=== PATIENT | female | born 1975 | race Hispanic/Latino ===

== ENCOUNTER 2016-11-28 07:01 | Outpatient (CLI) | payer OTHER ==
--- NOTE | 2016-11-28 09:31 | MRI ---
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 FINDINGS: Postcontrast-enhanced multiplanar images of brain and pituitary and pineal glands are obtained. Images demonstrate 2 areas of slight increased signal seen on T2 weighted sequences within the pinea l region. These areas do not enhance on the contrast-enhanced images. 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 No definite abnormal areas of enhancement are seen on the rest of the pineal g land. Repeat followup MRI in approximately 6 months to a year may be of use to confirm pineal stabi lity. No other abnormal areas of intracranial enhancement or masses seen. POS: [facility]
[2016-11-28] MEDS ORDERED: Gadobenate Dimeglumine 529 MG/1 ML (20ML VIAL) ONE (14:38)
== END 2016-11-28 07:02 | disposition home or self-care (01) ==
LOC: MRI 07:01
PROVIDERS: ATTEND Student in an Organized Health Care Education/Training Program
DX: R93.0 Abnormal findings on diagnostic imaging of skull and head, not elsewhere classified (principal); R51 Headache
CPT/HCPCS: 70552; A9579

== ENCOUNTER 2017-01-03 11:22 | Outpatient (CLI) | payer OTHER ==
--- NOTE | 2017-01-03 13:14 | MMO ---
BILATERAL SCREENING MAMMOGRAM: COMPARISON: 06/09/15 study. HISTORY: Annual screening exam. Films are reviewed with the assistance of computer-aided detection. FINDINGS: The breasts are heterogeneously dense. Benign calcifications are seen. Stable nodular density in th e upper outer left breast appears to represent an intramammary node. IMPRESSION: BI-RADS category 2 - benign findings. BIRADS 2: Benign Finding(s) Routine annual screening mammography (for women over age 40) POS: [facility]
== END 2017-01-03 11:23 | disposition home or self-care (01) ==
LOC: MAMMO 11:22
PROVIDERS: ATTEND Internal Medicine
DX: Z12.31 Encounter for screening mammogram for malignant neoplasm of breast (principal)
CPT/HCPCS: 77067; G0202

== ENCOUNTER 2017-05-09 10:43 | Outpatient (CLI) | payer OTHER | END 2017-05-09 10:44 | disposition home or self-care (01) | LOC: BICRAD 10:43 | PROVIDERS: ATTEND Internal Medicine | DX: M79.671 Pain in right foot (principal); M19.071 Primary osteoarthritis, right ankle and foot ==

== ENCOUNTER 2017-05-19 07:45 | Outpatient (CLI) | payer OTHER ==
--- NOTE | 2017-05-19 09:14 | CT ---
CT RIGHT FOOT: Date: 05/19/17 Multiple axial tomograms obtained through the right ankle and foot with multiplanar reconstructions. INDICATION: Right foot pain. Technologist states that there is pain to base of second and third toes. FINDINGS: Mild degenerative spurring is seen at the tibiotalar joint. The intertarsal joints appear unremarkabl e. Tarsals appear intact. The tarsometatarsal joints are unremarkable. There is slight deformity of the mid shaft of the second metatarsal suggesting old, healed fracture. Very mild degenerative spurring at the first MTP joint. The other MTP joints appear unremarkable. Pha langes appear unremarkable. No soft tissue abnormality identified. IMPRESSION: No evidence of acute osseous abnormality. There are mild degenerative changes as described. POS: [facility]
== END 2017-05-19 07:46 | disposition home or self-care (01) ==
LOC: CT 07:45
PROVIDERS: ATTEND Internal Medicine
DX: M79.671 Pain in right foot (principal); M19.071 Primary osteoarthritis, right ankle and foot

== ENCOUNTER 2017-07-10 23:56 | Emergency (ER) | payer OTHER ==
[2017-07-11] MEDS ORDERED: Adacel (T-DAP) 0.5 ML VIAL ONE (00:09)
[2017-07-11] MEDS ORDERED: Lidocaine 1% 20 ML MDV ONE (00:11)
[2017-07-11] MEDS ORDERED: HYDROcodone/Acetaminophen 5/325 mg Tablet ONE (00:26)
[2017-07-11] MEDS ORDERED: Bacitracin Zinc Ointment 30 gm TUBE ONE (00:57)
[2017-07-11] MEDS ORDERED: CEFAZOLIN 1 GM VIAL ONE (01:05)
[2017-07-11] MEDS ORDERED: Sodium Chloride 0.9% 100 ML ONE (01:06)
--- NOTE | 2017-07-11 07:38 | RAD ---
RIGHT FINGER 2 VIEWS: HISTORY: Foreign body to the hand. COMPARISON: None. FINDINGS: There appears to be a broken-off needle within the bilateral soft tissues of the thumb distal phalanx . This appears to abut the cortex and not definitively the interosseous. IMPRESSION: Radiopaque foreign object within the lateral soft tissues distal phalanx thumb tuft. POS: [facility]
--- NOTE | 2017-07-11 07:40 | RAD ---
RIGHT FINGER 3 VIEWS: HISTORY: Foreign body removal. COMPARISON: Radiograph same day. FINDINGS: Interval removal of the right finger foreign body of the lateral soft tissues distal phalanx of the t humb. IMPRESSION: No residual radiopaque foreign object appreciated. POS: [facility]
== END 2017-07-11 02:03 | disposition home or self-care (01) ==
LOC: SCSER 23:56
DX: S61.041A Puncture wound with foreign body of right thumb without damage to nail, initial encounter (principal); Z23 Encounter for immunization; Z79.899 Other long term (current) drug therapy; I10 Essential (primary) hypertension; W45.8XXA Other foreign body or object entering through skin, initial encounter
CPT/HCPCS: 10120; 90471; 90715; 96365; J0690; J2001; J7050

== ENCOUNTER 2017-11-18 07:25 | Outpatient (CLI) | payer OTHER ==
--- NOTE | 2017-11-18 10:30 | CT ---
POSTCONTRAST NECK CT: HISTORY: Knot in the left upper neck. Lymphadenopathy. COMPARISON: None. FINDINGS: The visualized brain parenchyma is unremarkable. Adequate aeration of the visualized mastoid air cells and paranasal sinuses. Aerodigestive tract is patent. No obvious masses in the oral cavity. Dental amalgam artifact limits evaluation. Midline fatty raphae of the tongue is preserved. Epiglottis has a normal caliber. Pre epiglottic fat is preserved. There is no prevertebral soft tissue swelling. Symmetric attenuation of the parotid and submandibular glands. The thyroid gland is unremarkable. The great vessels of the neck are grossly patent. Cervical spine vertebral body height is maintained. No fracture. Straightening of the normal cervic al lordosis is presumed to be due to the patient's position. No significant central canal stenosis o r neural foraminal narrowing. Nonspecific mildly enlarged right level II lymph node measuring 1.4 x 1.1 cm. Borderline left level II lymph node measuring 0.8 x 1.4 cm. Additional scattered nonspecific, nonenlarged bilateral soft t issue neck lymph nodes are noted. IMPRESSION: Nonspecific bilateral level II lymph nodes. POS: [facility]
[2017-11-18] MEDS ORDERED: Iopamidol 370 76% 100 ML VIAL ONE (10:48)
== END 2017-11-18 07:26 | disposition home or self-care (01) ==
LOC: CT 07:25
PROVIDERS: ATTEND Internal Medicine
DX: R59.0 Localized enlarged lymph nodes (principal)
CPT/HCPCS: 70491

== ENCOUNTER 2018-03-06 11:43 | Outpatient (CLI) | payer OTHER | END 2018-03-06 11:44 | disposition home or self-care (01) | LOC: BICMAMMO 11:43 | PROVIDERS: ATTEND Internal Medicine | DX: Z12.31 Encounter for screening mammogram for malignant neoplasm of breast (principal) | CPT/HCPCS: 77063; 77067 ==

== ENCOUNTER 2018-12-18 11:57 | Outpatient (CLI) | payer OTHER ==
--- NOTE | 2018-12-18 13:14 | RAD ---
Exam:3 views left foot HISTORY: Pain, lateral aspect COMPARISON: None FINDINGS: Lisfranc alignment is maintained. Joint spaces are preserved. No fracture or dislocation. IMPRESSION: No posttraumatic change.
== END 2018-12-18 11:58 | disposition home or self-care (01) ==
LOC: BICRAD 11:57
PROVIDERS: ATTEND Physician Assistant
DX: M79.672 Pain in left foot (principal)

== ENCOUNTER 2019-08-02 11:51 | Outpatient (CLI) | payer OTHER ==
--- NOTE | 2019-08-02 12:55 | MMO ---
Bilateral MAMMO Bilat Screen [facility]. CLINICAL HISTORY: Patient is 44 years old and is seen for screening. The patient has no family history of breast cancer. The patient has no personal history of cancer. VIEWS: The views performed were: bilateral craniocaudal with tomosynthesis and bilateral mediolateral oblique with tomosynthesis. FILMS COMPARED: The present examination has been compared to prior imaging studies performed at [facility] on 06/09/2015, 01/03/2017 and 03/06/2018. This study has been interpreted with the assistance of computer-aided detection. MAMMOGRAM FINDINGS: The breasts are heterogeneously dense, which could obscure a lesion on mammography. There are no suspicious masses, suspicious calcifications, or new areas of architectural distortion. IMPRESSION: THERE IS NO MAMMOGRAPHIC EVIDENCE OF MALIGNANCY. A ROUTINE FOLLOW-UP MAMMOGRAM IN 1 YEAR IS RECOMMENDED. THE RESULTS OF THIS EXAM WERE SENT TO THE PATIENT. ACR BI-RADS Category 1 - Negative MAMMOGRAPHY NOTE: 1. A negative mammogram report should not delay a biopsy if a dominant of clinically suspicious mass is present. 2. Approximately 10% to 15% of breast cancers are not detected by mammography. 3. Adenosis and dense breasts may obscure an underlying neoplasm. Reported by: KEVIN MUNGUIA MD Electonically Signed: [id number]
== END 2019-08-02 11:52 | disposition home or self-care (01) ==
LOC: BICMAMMO 11:51
PROVIDERS: ATTEND Internal Medicine
DX: Z12.31 Encounter for screening mammogram for malignant neoplasm of breast (principal)
CPT/HCPCS: 77063; 77067

== ENCOUNTER 2019-11-08 15:53 | Outpatient (CLI) | payer OTHER ==
--- NOTE | 2019-11-08 16:15 | RAD ---
Exam: XR Foot Lt 3 View STANDARD HISTORY: Left foot pain after twisting injury. Patient states pain fifth metatarsal. COMPARISON: 12/18/2018 FINDINGS: No acute fracture, dislocation, or other acute osseous abnormality is identified. No interval change from prior study. IMPRESSION: No acute osseous abnormality is identified.
== END 2019-11-08 15:54 | disposition home or self-care (01) ==
LOC: BICRAD 15:53
PROVIDERS: ATTEND Internal Medicine
DX: M79.672 Pain in left foot (principal)

== ENCOUNTER 2022-04-29 10:22 | Outpatient (CLI) | payer BC | END 2022-04-29 10:23 | disposition home or self-care (01) | LOC: BICMAMMO 10:22 | PROVIDERS: ATTEND Internal Medicine | DX: Z12.31 Encounter for screening mammogram for malignant neoplasm of breast (principal) | CPT/HCPCS: 77063; 77067 ==

== ENCOUNTER 2023-04-07 14:42 | Outpatient (CLI) | payer BC | END 2023-04-07 14:43 | disposition home or self-care (01) | LOC: BICRAD 14:42 | PROVIDERS: ATTEND Internal Medicine | DX: M54.31 Sciatica, right side (principal); M47.816 Spondylosis without myelopathy or radiculopathy, lumbar region | CPT/HCPCS: 72100 ==

== ENCOUNTER 2023-08-25 08:48 | Outpatient (CLI) | payer BC | END 2023-08-25 08:49 | disposition home or self-care (01) | LOC: BICRAD 08:48 | PROVIDERS: ATTEND Internal Medicine | DX: M77.12 Lateral epicondylitis, left elbow (principal) ==

== ENCOUNTER 2024-01-27 14:58 | Outpatient (CLI) | payer BC ==
[2024-01-27 15:55] LABS: #Basophils 0.05 10x3/uL (0.0-0.2); %Basophils 0.7 % (0.0-1.0); %Eosinophils 8.1 % (0.0-10.0); %Lymphocytes 33.1 % (21.0-51.0); %Monocytes 5.9 % (0.0-10.0); %Neutrophils 52.1 % (42.0-75.0); Hematocrit 35.4 % (36.0-47.0); Hemoglobin 12.1 g/dL (12.0-16.0); Mean Corpuscular HGB CONC 34.2 g/dL (32.0-36.0); Mean Corpuscular Hemoglobin 29.2 pg (27.0-31.0); Mean Corpuscular Volume 85.3 fL (78.0-98.0); Mean Platelet Volume 11.2 fL (7.4-10.4); Platelet Count 248 10x3/uL (130-400); RBC Distribution Width 12.5 % (11.5-14.5); Red Blood Cell (RBC) Count 4.15 mill/uL (4.20-5.40)
[2024-01-27 16:10] LABS: Anion Gap 12 mmol/L (10-20); BUN (Urea Nitrogen) 15 mg/dL (7.0-18.7); Calc. Creatinine Clearance 0 mL/min (70-130); Calcium 8.7 mg/dL (7.8-10.44); Carbon Dioxide 28 mmol/L (22-29); Chloride 106 mmol/L (98-107); Estimated GFR 109; Glucose 109 mg/dL (70-105); Potassium 3.6 mmol/L (3.5-5.1); Sodium 142 mmol/L (136-145)
== END 2024-01-27 14:59 | disposition home or self-care (01) ==
LOC: LABBT 14:58
PROVIDERS: ATTEND Orthopaedic Surgery
DX: Z01.812 Encounter for preprocedural laboratory examination (principal); S83.241D Other tear of medial meniscus, current injury, right knee, subsequent encounter
CPT/HCPCS: 80048; 85025; 93005; 93010